=== PATIENT | female | born 2000 | race Caucasian/White ===

== ENCOUNTER → 2020-07-22 | Outpatient (CLI) | payer OTHER ==
[~2020-07-22] VITALS: Ht 170.2 cm; Wt 62.7 kg
[~2020-07-22] MED LIST: GADOBUTROL 7.5 MMOL/7.5 ML (GADAVIST) VIAL IV ONE; IOHEXOL 240 MGI/ML 50 ML (OMNIPAQUE) VIAL IV ONE
--- NOTE | 2020-07-22 16:23 | Diagnostic Imaging Report ---
INDICATION: Right shoulder pain. Patient brought to the procedure room and placed on table in the supine position. The right shoulder was prepped and draped in usual sterile fashion. Small amount of 1% lidocaine was utilized for local anesthesia. 22-gauge needle was advanced into the right shoulder at the rotator interval. A 15 mm solution of iodinated contrast, normal saline and gadolinium was injected under fluoroscopic observation. Needle was withdrawn and hemostasis was obtained. Patient tolerated procedure well and was sent to MRI in satisfactory condition. 15 seconds fluoroscopic time is utilized. 2 images were obtained. IMPRESSION: Successful right shoulder injection of gadolinium contrast solution, using fluoroscopy. Dictated by: Dictated on workstation # [id number]
--- NOTE | 2020-07-22 16:25 | Diagnostic Imaging Report ---
EXAMINATION: Magnetic resonance imaging of the right shoulder with intra-articular contrast. DATE: July 22, 2020. COMPARISON: Right shoulder arthrogram July 22, 2020 HISTORY: 20-year-old female, right shoulder pain and instability. Injury playing softball. TECHNIQUE: Magnetic Resonance Imaging sequences were performed of the shoulder following the intra-articular administration of contrast. FINDINGS: ROTATOR CUFF, LIGAMENTS, TENDONS, AND MUSCLES: The supraspinatus, infraspinatus, teres minor, and subscapularis tendons and muscles are intact. There is normal rotator cuff muscle bulk and signal. LONG HEAD OF BICEPS: The biceps labral attachment and long head of the biceps tendon is intact. The long head of the biceps tendon is normally positioned within the bicipital groove. GLENOHUMERAL JOINT: The humeral head is well positioned relative to the glenoid. The labrum is intact. There is no identified paralabral cyst. The articular cartilage is grossly intact. There is no intra-articular body or prominent synovitis. ACROMIOCLAVICULAR JOINT: The acromioclavicular joint is normally aligned. The coracoclavicular and coracoacromial ligaments are intact. There are no degenerative changes of the acromioclavicular joint. BONE: The bones all have normal configuration. There is a benign bone island in the glenoid. The additional bone marrow signal is unremarkable. No acute fracture or bone contusion. BURSAE AND SOFT TISSUES: The bursae and soft tissue surrounding the shoulder are unremarkable. IMPRESSION: 1. Intact labrum and unremarkable additional glenohumeral joint evaluation. 2. Intact rotator cuff and proximal long head of the biceps tendon. 3. Intact acromioclavicular joint. 4. No acute fracture or bone contusion. Dictated by: Dictated on workstation # [id number]
== END ==
LOC: RAD 14:15
PROVIDERS: ATTEND Orthopaedic Surgery
DX: S49.91XA Unspecified injury of right shoulder and upper arm, initial encounter (principal); Y93.61 Activity, american tackle football
CPT/HCPCS: 23350; 73040; 73222

== ENCOUNTER 2021-01-11 11:35 | Emergency (ER) | payer OTHER ==
[~2021-01-11] VITALS: Ht 170.2 cm; Wt 63.5 kg
[2021-01-11 11:48] VITALS: BP 120/79
--- NOTE | 2021-01-11 12:08 | ED Abdominal Pain ---
General Chief Complaint: Abdominal/GI Problems Stated Complaint: HAND FOOT MOUTH DISEASE ,DIZZINESS,N/V,RLQ PAIN Source of Information: Patient Exam Limitations: No Limitations (FRANCESCA ODELL APRN) History of Present Illness Date Seen by Provider: Jan 11, 2021 Time Seen by Provider: 12:06 Initial Comments to ER with reports of pdap-yice-gal-mouth disease. She was diagnosed at urgent care on , 01/06/2021. Her symptoms began on 01/04 or 12/5020. She had fevers, sores on her lips tongue and inside of her cheeks. No cough no shortness of breath. She has had some nausea. She has also had some pain with oral intake as well as right lower quadrant abdominal pain. She was seen at urgent care and was given some tetracaine suckers and fluconazole which have helped. Timing/Duration: 1-2 Days Severity/Quality: Cramping Radiation: No Radiation Activities at Onset: None Associated Symptoms: Fever/Chills (FRANCESCA ODELL APRN) Allergies and Home Medications Allergies Coded Allergies: No Allergy Information Available (Unverified , 07/22/20) Patient Home Medication List Home Medication List Reviewed: Yes (FRANCESCA ODELL APRN) Valacyclovir HCl (Valacyclovir) 1,000 Mg Tablet, 1,000 MG PO BID Prescribed by: FRANCESCA ODELL on 01/11/21 1349 Review of Systems Review of Systems Constitutional: see HPI, chills, fever EENTM: No Symptoms Reported Respiratory: No Symptoms Reported Cardiovascular: No Symptoms Reported Gastrointestinal: No Symptoms Reported Genitourinary: No Symptoms Reported Musculoskeletal: no symptoms reported Skin: no symptoms reported Psychiatric/Neurological: No Symptoms Reported Endocrine: No Symptoms Reported (FRANCESCA ODELL APRN) Physical Exam Vital Signs Vital Signs - First Documented 01/11/21 11:48 Temp 35.7 Pulse 87 Resp 16 B/P (MAP) 120/79 (93) Pulse Ox 99 O2 Delivery Room Air (KI HOPPER DO) Vital Signs Capillary Refill : (FRANCESCA ODELL APRN) Height/Weight/BMI Height: '" Weight: lbs. oz. kg; 21.64 BMI Method: General Appearance: WD/WN, no apparent distress HEENT: PERRL/EOMI, normal ENT inspection, TMs normal, other (Multiple ulcerative lesions on an erythematous base on the tongue buccal mucosa and on the lips.) Respiratory: no respiratory distress, no accessory muscle use Gastrointestinal: normal bowel sounds, non tender, soft Extremities: normal range of motion, non-tender Neurologic/Psychiatric: alert, normal mood/affect, oriented x 3 Skin: normal color, warm/dry, other (No lesions of any sort to the rest of the body including the hands or feet) (FRANCESCA ODELL APRN) Progress/Results/Core Measures Results/Orders Lab Results Laboratory Tests Test 01/11/21 11:52 01/11/21 12:00 Range/Units Urine Color YELLOW Urine Clarity CLEAR Urine pH 6.0 5-9 Urine Specific [place] 1.020 1.016-1.022 Urine Protein 1+ H NEGATIVE Urine Glucose (UA) NEGATIVE NEGATIVE Urine Ketones 1+ H NEGATIVE Urine Nitrite NEGATIVE NEGATIVE Urine Bilirubin 1+ H NEGATIVE Urine Urobilinogen 0.2 < = 1.0 MG/DL Urine Leukocyte Esterase TRACE H NEGATIVE Urine RBC (Auto) 3+ H NEGATIVE Urine RBC 5-10 H /HPF Urine WBC 5-10 H /HPF Urine Squamous Epithelial Cells 5-10 /HPF Urine Crystals NONE /LPF Urine Bacteria MODERATE H /HPF Urine Casts NONE /LPF Urine Mucus SMALL H /LPF Urine Culture Indicated YES White Blood Count 11.5 H 4.3-11.0 10^3/uL Red Blood Count 4.58 3.80-5.11 10^6/uL Hemoglobin 12.6 11.5-16.0 g/dL Hematocrit 38 35-52 % Mean Corpuscular Volume 82 80-99 fL Mean Corpuscular Hemoglobin 28 25-34 pg Mean Corpuscular Hemoglobin Concent 34 32-36 g/dL Red Cell Distribution Width 12.6 10.0-14.5 % Platelet Count 256 130-400 10^3/uL Mean Platelet Volume 10.3 9.0-12.2 fL Immature Granulocyte % (Auto) 0 % Neutrophils (%) (Auto) 73 42-75 % Lymphocytes (%) (Auto) 22 12-44 % Monocytes (%) (Auto) 5 0-12 % Eosinophils (%) (Auto) 0 0-10 % Basophils (%) (Auto) 0 0-10 % Neutrophils # (Auto) 8.3 H 1.8-7.8 10^3/uL Lymphocytes # (Auto) 2.5 1.0-4.0 10^3/uL Monocytes # (Auto) 0.6 0.0-1.0 10^3/uL Eosinophils # (Auto) 0.0 0.0-0.3 10^3/uL Basophils # (Auto) 0.0 0.0-0.1 10^3/uL Immature Granulocyte # (Auto) 0.0 0.0-0.1 10^3/uL Sodium Level 140 135-145 MMOL/L Potassium Level 3.8 3.6-5.0 MMOL/L Chloride Level 103 98-107 MMOL/L Carbon Dioxide Level 23 21-32 MMOL/L Anion Gap 14 5-14 MMOL/L Blood Urea Nitrogen 14 7-18 MG/DL Creatinine 0.92 0.60-1.30 MG/DL Estimat Glomerular Filtration Rate 78 BUN/Creatinine Ratio 15 Glucose Level 118 H 70-105 MG/DL Calcium Level 10.0 8.5-10.1 MG/DL Corrected Calcium 8.5-10.1 MG/DL Total Bilirubin 0.5 0.1-1.0 MG/DL Aspartate Amino Transf (AST/SGOT) 16 5-34 U/L Alanine Aminotransferase (ALT/SGPT) 11 0-55 U/L Alkaline Phosphatase 56 40-136 U/L Total Protein 8.6 H 6.4-8.2 GM/DL Albumin 4.6 H 3.2-4.5 GM/DL Serum Test, Qualitative NEGATIVE NEGATIVE (WARDKI K ) Micro Results Microbiology 01/11/21 Urine Culture - Final, Complete Gram Pos Mixed Bacterial Treva (WARDKI K ) Vital Signs/I&O 01/11/21 11:48 Temp 35.7 Pulse 87 Resp 16 B/P (MAP) 120/79 (93) Pulse Ox 99 O2 Delivery Room Air (WARDKI [employer] ) Departure Communication (Admissions) NAME: CHRISTY OROSCO MED REC#: [id number] PT STATUS: REG ER : 2000 PHYSICIAN: FRANCESCA ODELL APRN ADMIT DATE: 01/11/21/ER Draft Date of Exam:01/11/21 CT ABD/PELV W (APPENDICITIS) PROCEDURE: CT abdomen and pelvis with contrast, rule out appendicitis. TECHNIQUE: Multiple contiguous axial images were obtained through the abdomen and pelvis after the administration of intravenous contrast. All CT scans use one or more of the following dose optimizing techniques: automated exposure control, MA and/or KvP adjustment based on patient size and exam type or iterative reconstruction. DATE: January 11, 2021. COMPARISON: None. INDICATION: 20-year-old female, right lower quadrant abdominal pain. FINDINGS: The visualized portions of the lung bases are clear. The heart is not enlarged. There is no pericardial effusion. The liver is unremarkable in size and contour. There is no identified liver lesion. The main, right, and left portal veins are patent. The gallbladder is unremarkable. There is no intrahepatic or extrahepatic bile duct dilation. The main pancreatic duct is not abnormally dilated. Unremarkable appearance of the pancreatic parenchyma. The adrenal glands are unremarkable. Unremarkable appearance of the renal parenchyma. There is contrast in the urinary collecting systems relating to the timing of the contrast bolus. The urinary bladder is underdistended and not well evaluated. There is a probable right ovarian cyst on axial image 92 measuring 3.8 x 1.7 cm in size. The appendix is seen on axial image 87 and adjacent sequential images. There is no evidence to suggest acute appendicitis. There is no free intraperitoneal air. There is no drainable fluid collection. There is no sizable volume free pelvic fluid. There is no identified abnormally enlarged lymph node in the abdomen or pelvis meeting CT size criteria for adenopathy. There is no identified acute bony abnormality. IMPRESSION: 1. No evidence of acute appendicitis. 2. Probable right ovarian cyst measuring 3.8 x 1.8 cm in size. Dictated on workstation # [id number] Dict: 01/11/21 1348 Trans: 01/11/21 [id number] Interpreted by: LELAND RIZZO MD Electronically signed by: (FRANCESCA ODELL APRN) Impression Primary Impression: Herpetic gingivostomatitis Disposition: 01 HOME, SELF-CARE Condition: Stable Departure-Patient Inst. Decision time for Depature: 13:48 (FRANCESCA ODELL APRN) Referrals: NO,LOCAL PHYSICIAN (PCP/Family) Primary Care Physician Patient Instructions: No Instuctions Given Add. Discharge Instructions: 1. Continue the fluconazone and tetracaine suckers. Add the antiviral called valacylovir as directed. return to ER for any worsening. You do have what appears to be an ovarian cyst on the right side. This warrants follow-up with ultrasound in a few weeks if pain does not resolve. Your primary care provider or [facility] can order this. All discharge instructions reviewed with patient and/or family. Voiced understanding. Scripts Valacyclovir HCl (Valacyclovir) 1,000 Mg Tablet 1000 MG PO BID, #10 TAB Prov: FRANCESCA ODELL APRN 01/11/21 ATTENDING PHYSICIAN NOTE: I WAS PHYSICALLY PRESENT ER PHYSICIAN WHEN THIS PATIENT WAS IN ER, BUT I WAS NOT INVOLVED IN DECISION MAKING OR ANY CARE OF THIS PATIENT. (KI HOPPER DO) FRANCESCA ODELL APRN Jan 11, 2021 12:08 KI HOPPER DO Jan 13, 2021 06:43
[2021-01-11 12:10] LABS: BASOPHILS % (AUTO) 0 % (0-10); EOSINOPHILS % (AUTO) 0 % (0-10); HEMATOCRIT 38 % (35-52); HEMOGLOBIN 12.6 g/dL (11.5-16.0); LYMPHOCYTES # (AUTO) 2.5 10^3/uL (1.0-4.0); LYMPHOCYTES % (AUTO) 22 % (12-44); MEAN CORPUSCULAR HEMOGLOBIN 28 pg (25-34); MEAN CORPUSCULAR HGB CONC 34 g/dL (32-36); MEAN CORPUSCULAR VOLUME 82 fL (80-99); MEAN PLATELET VOLUME 10.3 fL (9.0-12.2); MONOCYTES # (AUTO) 0.6 10^3/uL (0.0-1.0); MONOCYTES % (AUTO) 5 % (0-12); NEUTROPHILS # (AUTO) 8.3 10^3/uL (1.8-7.8); NEUTROPHILS % (AUTO) 73 % (42-75); PLATELET COUNT 256 10^3/uL (130-400); WHITE BLOOD COUNT 11.5 10^3/uL (4.3-11.0)
[2021-01-11] MEDS ORDERED: KETOROLAC 30 MG/ML VIAL IVP ONE (12:15)
[2021-01-11] MEDS ORDERED: FLUCONAZOLE 150 MG TABLET (ED ONLY) PO ONE (12:15)
[2021-01-11] MEDS ORDERED: ONDANSETRON 4 MG/2 ML (SDV) Z0FRAN IVP ONE (12:15)
[2021-01-11] MEDS ORDERED: LACTATED RINGERS 1,000 ML IV SCH (12:15)
[2021-01-11] MEDS ORDERED: LIDOCAINE 2% VISCOUS 15 ML UDC PO ONE ×2 (12:15→14:30)
[2021-01-11 12:30] LABS: ALANINE AMINOTRANSFERASE 11 U/L (0-55); ALBUMIN 4.6 GM/DL (3.2-4.5); ALKALINE PHOSPHATASE 56 U/L (40-136); BILIRUBIN,TOTAL 0.5 MG/DL (0.1-1.0); BUN/CREATININE RATIO 15; CARBON DIOXIDE 23 MMOL/L (21-32); CHLORIDE 103 MMOL/L (98-107); CREATININE SERUM 0.92 MG/DL (0.60-1.30); GFR ESTIMATED 78; GLUCOSE 118 MG/DL (70-105); POTASSIUM 3.8 MMOL/L (3.6-5.0); SODIUM 140 MMOL/L (135-145); TOTAL PROTEIN 8.6 GM/DL (6.4-8.2)
[2021-01-11 13:09] LABS: CLARITY,URINE CLEAR; COLOR,URINE YELLOW; GLUCOSE, URINE (UA) NEGATIVE (NEGATIVE); KETONES,URINE 1+ (NEGATIVE); LEUKOCYTE ESTERASE ,URINE TRACE (NEGATIVE); NITRITE,URINE NEGATIVE (NEGATIVE); PROTEIN,URINE 1+ (NEGATIVE)
[2021-01-11] MEDS ORDERED: CATHETER FLUSH 10 ML SYR IV PRN (13:30)
[2021-01-11] MEDS ORDERED: IOHEXOL 350 MG/ML 100 ML (OMNIPAQUE 350) VIAL IV ONE (13:30)
[2021-01-11] MEDS ORDERED: HOLD METFORMIN - RECEIVED CONTRAST 20 ML VIAL IV SCH (13:30)
[2021-01-11] MEDS ORDERED: NS 100 ML (IVPB) BAG IV ONE (13:30)
[2021-01-11 13:34] LABS: BILIRUBIN,URINE 1+ (NEGATIVE)
[2021-01-11 13:35] LABS: BACTERIA,URINE MODERATE /HPF
[2021-01-11] MEDS ORDERED: VALA10007 PO (13:49)
[2021-01-11] MEDS ORDERED: cefTRIAXone 1,000 MG in WATER (STERILE) FOR INJECTION 10 ML IV ONE (14:00)
--- NOTE | 2021-01-11 14:18 | Diagnostic Imaging Report ---
PROCEDURE: CT abdomen and pelvis with contrast, rule out appendicitis. TECHNIQUE: Multiple contiguous axial images were obtained through the abdomen and pelvis after the administration of intravenous contrast. All CT scans use one or more of the following dose optimizing techniques: automated exposure control, MA and/or KvP adjustment based on patient size and exam type or iterative reconstruction. DATE: January 11, 2021. COMPARISON: None. INDICATION: 20-year-old female, right lower quadrant abdominal pain. FINDINGS: The visualized portions of the lung bases are clear. The heart is not enlarged. There is no pericardial effusion. The liver is unremarkable in size and contour. There is no identified liver lesion. The main, right, and left portal veins are patent. The gallbladder is unremarkable. There is no intrahepatic or extrahepatic bile duct dilation. The main pancreatic duct is not abnormally dilated. Unremarkable appearance of the pancreatic parenchyma. The adrenal glands are unremarkable. Unremarkable appearance of the renal parenchyma. There is contrast in the urinary collecting systems relating to the timing of the contrast bolus. The urinary bladder is underdistended and not well evaluated. There is a probable right ovarian cyst on axial image 92 measuring 3.8 x 1.7 cm in size. The appendix is seen on axial image 87 and adjacent sequential images. There is no evidence to suggest acute appendicitis. There is no free intraperitoneal air. There is no drainable fluid collection. There is no sizable volume free pelvic fluid. There is no identified abnormally enlarged lymph node in the abdomen or pelvis meeting CT size criteria for adenopathy. There is no identified acute bony abnormality. IMPRESSION: 1. No evidence of acute appendicitis. 2. Probable right ovarian cyst measuring 3.8 x 1.8 cm in size. Dictated by: Dictated on workstation # [id number]
== END 2021-01-11 14:33 | disposition home or self-care (01) ==
LOC: EDUNIT# 11:35 → ER 11:37
DX: B00.2 Herpesviral gingivostomatitis and pharyngotonsillitis (principal)
CPT/HCPCS: 36415; 74177; 80053; 81000; 84703; 85025; 87088; 96361; 96374; 96375